=== PATIENT | male | born 1970 | race Caucasian/White ===

== ENCOUNTER 2022-05-27 13:17 | Emergency (ER) | payer MEDICAID ==
[~2022-05-27] VITALS: Ht 175.3 cm; Wt 171.5 kg
[2022-05-27 13:19] VITALS: BP 158/92
--- NOTE | 2022-05-27 13:45 | NUR ---
PA Moran evaluating patient at bedside.
--- NOTE | 2022-05-27 13:54 | NUR ---
52 y/o male bib self with c/o epigastric pain and diarrhea x 2 days. Per patient, he has been around his sick roommate. Denies fever, chills or eating new foods. Patient says he ate some food that had been sitting out all day then the diarrhea started. Patient denies any pain. Patient states its just discomfort. Patient believes he has the stomach flu. Has been taking OTC anti-diarrheal medication. Medical History:Denies NKDA
[2022-05-27] MEDS ORDERED: FAMO-90 PO (13:55)
[2022-05-27] MEDS ORDERED: ONDA-188 PO (13:55)
[2022-05-27] MEDS ORDERED: IMO2 PO (13:55)
--- NOTE | 2022-05-27 14:10 | NUR ---
Patient discharged with v/s stable. Written and verbal after care instructions given. Patient alert, oriented and verbalized understanding of instructions. Ambulatory with steady gait. All questions addressed prior to discharge. ID band removed. Patient advised to follow up with PMD. Rx of Pepcid, Loperamide and Zofran given. Opportunity to ask questions provided and answered.
--- NOTE | 2022-05-27 14:11 | NUR ---
The patient's care was reviewed and supervised by Rosie Silva RN.
== END 2022-05-27 14:10 | disposition home or self-care (01) ==
LOC: MED 13:17
DX: R19.7 Diarrhea, unspecified (principal); R03.0 Elevated blood-pressure reading, without diagnosis of hypertension; R11.0 Nausea; R10.13 Epigastric pain; Z79.899 Other long term (current) drug therapy; Z98.890 Other specified postprocedural states
CPT/HCPCS: 81002; 99283

== ENCOUNTER 2023-02-21 11:25 | Emergency (ER) | payer MEDICAID, OTHER ==
[~2023-02-21] VITALS: Ht 175.3 cm; Wt 183.3 kg
[~2023-02-21 11:25] MED LIST: FAMO-90 PO; IMO2 PO; ONDA-188 PO
[2023-02-21 11:48] VITALS: BP 122/93; PULSE 94; RESP 20; TEMP 98.2; O2SAT 93
--- NOTE | 2023-02-21 11:57 | NUR ---
pt ambulated to restroom for urine sample
--- NOTE | 2023-02-21 12:06 | NUR ---
BIB WHEELCHAIR TO ER BED 1
--- NOTE | 2023-02-21 12:17 | NUR ---
X-Ray at bedside.
[2023-02-21 12:47] LABS: BASOPHILS # (AUTO) 0.1 K/uL (0.00-0.22); BASOPHILS % (AUTO) 0.9 % (0.0-2.0); EOSINOPHILS # (AUTO) 0.1 K/uL (0-0.4); EOSINOPHILS % (AUTO) 1.2 % (0.0-4.0); HEMOGLOBIN 14.9 g/dL (12.0-18.0); LYMPHOCYTES # (AUTO) 1.4 K/uL (2.0-11.5); LYMPHOCYTES % (AUTO) 11.7 % (20.5-51.1); MEAN CORPUSCULAR HEMOGLOBIN 30 pg (27-31); MEAN CORPUSCULAR HGB CONC 34 g/dL (33-37); MEAN CORPUSCULAR VOLUME 89.8 fL (80-94); MONOCYTES # (AUTO) 0.9 K/uL (0.8-1.0); NEUTROPHILS # (AUTO) 9.3 K/uL (1.8-7.7); NEUTROPHILS % (AUTO) 78.2 % (42.2-75.2); PLATELET COUNT (AUTO) 238 K/uL (140-450); RED CELL DISTRIBUTION WIDTH 14.3 % (11.6-13.7); WHITE BLOOD COUNT (AUTO) 11.8 K/uL (4.8-10.8)
[2023-02-21 13:03] LABS: ANION GAP 8.6 (8-16); CARBON DIOXIDE 29.1 mmol/L (21-32); CREATININE 0.8 mg/dL (0.6-1.3); POTASSIUM 3.7 mmol/L (3.5-5.1); TOTAL BILIRUBIN 0.5 mg/dL (0.0-1.0)
--- NOTE | 2023-02-21 13:19 | NUR ---
KENNY Brito re-evaluating patient at bedside.
[2023-02-21] MEDS ORDERED: CEPH500C16 PO (13:24)
[2023-02-21] MEDS ORDERED: IBUP-2213 PO (13:24)
[2023-02-21 13:25] VITALS: BP 119/79; PULSE 76; RESP 24; TEMP 97.6; O2SAT 95
--- NOTE | 2023-02-21 13:41 | NUR ---
Patient discharged with v/s stable. Written and verbal after care instructions given. Patient alert, oriented and verbalized understanding of instructions. Ambulatory with steady gait. All questions addressed prior to discharge. ID band removed. Patient advised to follow up with PMD. Rx of Keflex and Ibuprofen given. Opportunity to ask questions provided and answered.
--- NOTE | 2023-02-21 15:30 | NUR ---
The patient's care was reviewed and supervised by IRENE TOBIAS RN.
== END 2023-02-21 13:41 | disposition home or self-care (01) ==
LOC: MED 11:25
DX: L03.115 Cellulitis of right lower limb (principal); J81.1 Chronic pulmonary edema; I51.7 Cardiomegaly; Z79.899 Other long term (current) drug therapy
CPT/HCPCS: 36415; 71045; 73590; 80053; 81002; 83880; 85025; 93971; 99284; Q0092

== ENCOUNTER 2023-02-24 13:43 | Emergency (ER) | payer OTHER ==
[~2023-02-24] VITALS: Ht 172.7 cm; Wt 113.4 kg
[~2023-02-24 13:43] MED LIST changes: +CEPH500C16 PO; +IBUP-2213 PO
[2023-02-24 14:01] VITALS: BP 141/82; PULSE 93; RESP 20; TEMP 98.1; O2SAT 95
[2023-02-24] MEDS ORDERED: NACL 0.9% 1,000 ML IV ONE (14:20)
--- NOTE | 2023-02-24 14:30 | NUR ---
PATIENT PRESENTS TO ED WITH right leg and knee pain . PT STATES medication decreased but know knee is swollen . DENIES N/V/D; SKIN IS PINK/WARM/DRY; AAOX4 WITH EVEN AND STEADY GAIT; LUNGS CLEAR BL; HR EVEN AND REGULAR; PT DENIES ANY FEVER, CP, SOB, OR COUGH AT THIS TIME; PATIENT STATES PAIN OF 0/10 AT THIS TIME; VSS; PATIENT POSITIONED FOR COMFORT; HOB ELEVATED; BEDRAILS UP X2; BED DOWN. ER MD MADE AWARE OF PT STATUS.
[2023-02-24 14:45] LABS: BASOPHILS # (AUTO) 0.1 K/uL (0.00-0.22); EOSINOPHILS # (AUTO) 0.1 K/uL (0-0.4); EOSINOPHILS % (AUTO) 1.5 % (0.0-4.0); HEMATOCRIT 42.6 % (36-52); HEMOGLOBIN 14.4 g/dL (12.0-18.0); LYMPHOCYTES # (AUTO) 1.2 K/uL (2.0-11.5); LYMPHOCYTES % (AUTO) 12.3 % (20.5-51.1); MEAN CORPUSCULAR HEMOGLOBIN 30 pg (27-31); MEAN CORPUSCULAR HGB CONC 34 g/dL (33-37); MEAN CORPUSCULAR VOLUME 89.9 fL (80-94); MONOCYTES # (AUTO) 0.7 K/uL (0.8-1.0); MONOCYTES % (AUTO) 6.8 % (1.7-9.3); NEUTROPHILS # (AUTO) 7.8 K/uL (1.8-7.7); NEUTROPHILS % (AUTO) 78.4 % (42.2-75.2); PLATELET COUNT (AUTO) 289 K/uL (140-450); RED BLOOD CELL COUNT(AUTO) 4.74 MIL/uL (4.20-6.10); RED CELL DISTRIBUTION WIDTH 13.9 % (11.6-13.7)
--- NOTE | 2023-02-24 14:51 | NUR ---
XRAY AT BEDSIDE
[2023-02-24 15:05] LABS: ALBUMIN 2.8 g/dL (3.4-5.0); ANION GAP 10.2 (8-16); CARBON DIOXIDE 28.4 mmol/L (21-32); CREATININE 0.8 mg/dL (0.6-1.3); POTASSIUM 3.6 mmol/L (3.5-5.1); TOTAL BILIRUBIN 0.5 mg/dL (0.0-1.0)
[2023-02-24] MEDS ORDERED: PIPERACILLIN/TAZOBACTAM 3.375 GM in DEXTROSE 5% 50 ML IV ONE (15:35)
[2023-02-24] MEDS ORDERED: PIPERACILLIN/TAZOBACTAM 3.375 GM VIAL IV ONE (15:43)
--- NOTE | 2023-02-24 15:55 | NUR ---
PT MEDICATED PER MD ORDERS
--- NOTE | 2023-02-24 21:17 | NUR ---
[facility] AT BEDSIDE
--- NOTE | 2023-02-24 21:24 | NUR ---
Patient to be transferred to [facility]. Is being transferred due to insurance purposes. Receiving facility has accepting physician and available space. ER physician has signed transfer form. Patient or responsible libertarian has agreed to transfer and signed form. Patient belongings inventoried and will be sent with patient. Copy of nursing notes, lab reports, EKG, Physicians Orders and X-rays to be sent with patient. Report called to Citlaly VALENZUELA at receiving facility. [facility] has been called for transfer.
[2023-02-24 21:35] VITALS: BP 139/70; PULSE 85; RESP 15; TEMP 97.3; O2SAT 96
--- NOTE | 2023-02-24 21:35 | NUR ---
PT [facility]AK[facility] BY [facility]
== END 2023-02-24 21:35 | disposition short-term general hospital (02) ==
LOC: MED 13:43
DX: L03.115 Cellulitis of right lower limb (principal); Z20.822 Contact with and (suspected) exposure to COVID-19; Z79.899 Other long term (current) drug therapy
CPT/HCPCS: 36415; 73562; 73590; 80053; 83605; 85025; 87040; 87426; 96361; 96365; 99285; J2543; J7030; Q0092